=== PATIENT | female | born 1985 | race Caucasian/White ===

== ENCOUNTER 2016-06-29 01:13 | Inpatient (IN) ==
[2016-06-29] MEDS ORDERED: Ondansetron 4 MG/2 ML VIAL IVP PRN (02:38)
[2016-06-29] MEDS ORDERED: Famotidine 20 MG/2 ML VIAL IVP PRN (02:38)
[2016-06-29] MEDS ORDERED: Naloxone 0.4 MG/ML INJ IVP PRN (02:38)
[2016-06-29] MEDS ORDERED: Ringers Solution, Lactated 1,000 ML ONE (02:41)
[2016-06-29 02:42] LABS: Basophils # 0.1 K/mcL (0.0-0.2); Basophils % 0.6 %; Eosinophils % 0.2 %; Hematocrit 28.3 % (35.3-44.9); Hemoglobin 8.4 g/dL (11.5-15.4); Immature Granulocytes % 1.3 % (0-4); Lymphocytes # 1.4 K/mcL (0.6-4.6); Lymphocytes % 16.1 %; Mean Corpuscular HGB Conc 29.7 g/dL (31.6-35.5); Mean Corpuscular Hemoglobin 20.7 pg (28.0-33.3); Mean Corpuscular Volume 69.7 fL (83.0-100.0); Mean Platelet Volume 11.1 fL (9.4-12.4); Monocytes # 0.5 K/mcL (0.0-1.3); Monocytes % 6.2 %; Neutrophils # 6.4 K/mcL (1.6-8.9); Nucleated Red Blood Cells 0.2 /100 WBC (0); Platelet Count 228 K/mcL (140-400); Red Blood Count 4.06 M/mcL (3.82-4.97); Red Cell Distribution Width 17.2 % (11.5-14.5); Segmented Neutrophils % 75.6 %
[2016-06-29] MEDS ORDERED: Ringers Solution, Lactated 1,000 ML IVC SCH (02:45)
[2016-06-29 03:00] LABS: Hypochromasia Present (Not Present); Platelet Estimate Normal (Normal); Polychromasia 1+ (Not Present)
--- NOTE | 2016-06-29 06:40 | OB/GYN History & Physical ---
Date of Encounter: 06/29/16 Time of Encounter: 06:30 Assessment and Plan (1) 38 weeks gestation of Current visit: Yes Status: Acute (2) Spontaneous rupture of membranes Current visit: Yes Status: Acute (3) Meconium in amniotic fluid affecting management of mother in third trimester Current visit: Yes Status: Acute Qualifiers: Fetus number: single or unspecified fetus Qualified Code(s): O36.8930 - Maternal care for other specified problems, third trimester, not applicable or unspecified (4) Active labor at term Current visit: Yes Status: Acute The patient does not continue to make cervical change on her own we will augment with Pitocin (5) Factor 5 Leiden mutation, heterozygous Current visit: Yes Status: Acute (6) and not yet delivered in third trimester Current visit: No Status: Acute History of Present Illness HPI: Ms. Ansari is a 30 year old female 5 para 1122 at 38-3/7 weeks who presented to labor and delivery with complaint of leaking of fluid at 1600 yesterday. Patient states she is started having leaking when her daughter got off the bus around 1600. She states it was just a small gush states continued to have dampness throughout the evening. Started having contractions and back pain and pressure came to labor and delivery where she states she had another large gush. Nitrazine was positive and she was having irregular contractions. The patient has a history of factor V Leiden is on heparin 5000 units twice a day. Patient's GBS status was negative Past Med Surg Social Fam HX - Past Medical History Medical history: asthma, other (Factor 5 Leiden) Psychiatric history: no psych history - Past Surgical History Surgical History: no surgical history - Social History Smoking Status: Never smoker Smokeless Tobacco Status: No Alcohol use: none Drug use: none Occupational status: employed Current living situation: Home - Independent Activity Level: Independent ambulation Recent Out of Country Travel Within the Last 8 Weeks: No Exposure or Possible Exposure to Illness During Travel: No - Family History Father Adopted: No Family Member Ethnicity: Non- Living Status: Still Living Hx Family Cardiac Disorders: No Hx Family Respiratory Disorders: No Hx Family Cancer: Yes Hx Family GI Disorders: No Hx Family Endocrine Disorder: No Hx Family Neuromuscular Disorders: No Hx Family Neurologic Disorders: No Hx Family HEENT Disorders: No Hx Family Autoimmune Disorders: No - Additional Family History Additional family history: Family history noncontributory at this time Obstetrical History - Pregnancies : 5 Para: 2 Term: 1 : 1 Ab's: 2 Livin Medications and Allergies Ondansetron ODT [Zofran ODT] 1 tab PO Q6H 05/04/16 [History] Bax105/FA/Omega3/Dha/Fish Oil [ Gummies] 1 tab PO DAILY 05/04/16 [ History] Ferrous Sulfate 1 tab PO DAILY 06/11/16 [History] Ppj365/FA/Omega3/Dha/Fish Oil [ Gummies] 1 each PO DAILY #30 tab.chew [Rx] Allergies naproxen [From Naprosyn] Allergy (Verified 06/11/16 14:23) Numbness Penicillins Allergy (Verified 06/11/16 14:23) Hives Review of System OB All systems PM: reviewed and no additional remarkable complaints except as stated Exam - Constitutional Constitutional: well developed, well nourished, average body habitus, mild distress - HEENT HEENT: PERRL - Neck Neck exam: full ROM - Lungs Respiratory exam: CTAB - Cardiovascular Cardiovascular exam: RRR - Abdomen Abdomen: Present: gravid - Cervix Dilation: 6 Effacement: 80 Station: -3 (forbag was noted this was then artificially ruptured with large amounts of meconium-stained fluid encountered.) - Comments Comments: heart tones 130s reactive scalp monitor placed contractions irregular every 2-4 minutes. Results Result Diagrams: 06/29/16 02:30 Abnormal lab results Hgb 8.4 g/dL (11.5-15.4) L 06/29/16 02:30 Hct 28.3 % (35.3-44.9) L 06/29/16 02:30 MCV 69.7 fL (83.0-100.0) L 06/29/16 02:30 MCH 20.7 pg (28.0-33.3) L 06/29/16 02:30 MCHC 29.7 g/dL (31.6-35.5) L 06/29/16 02:30 RDW 17.2 % (11.5-14.5) H 06/29/16 02:30 Nucleated RBCs/100 WBC 0.2 /100 WBC (0) H 06/29/16 02:30 Polychromasia 1+ (Not Present) A 06/29/16 02:30 Hypochromasia Present (Not Present) A 06/29/16 02:30 All other labs normal. - VTE Reasons for not Prescribing Prophylaxis: Treatment not Indicated - Low risk for VTE
[2016-06-29] MEDS ORDERED: Oxytocin 20 units/ LR 1000 mL 20 UNIT/1,000 ML BAG IVC ONE ×3 (07:49→11:36)
--- NOTE | 2016-06-29 09:07 | OB/GYN Procedure Note ---
Delivery - Delivery Date: 06/29/16 Provider: Timoteo Frank Intrapartum events: none Delivery induction: none Delivery monitor: external uterine, internal FHT Anesthesia: epidural Estimated Blood Loss: 300 - Infant (s) Infant A Delivery Date: 06/29/16 Infant Delivery Time: 08:49 Presentation: vertex Position: ELIAN Route of delivery: Gender: Male Viability: Viable Pounds: 7 Ounces: 14 at 1 minute: 9 at 5 mins: 9 Shoulder Dystocia: not encountered Specimens collected: cord blood Placenta: spontaneous Cord: 3 umbilical vessels, delivered through nuchal - Repair Episiotomy: none Laceration Description: None - Complications Delivery complications: none - Disposition Mom disposition: stable in LDR disposition: stable in LDR - Comments Comments: Pt s/p of liveborn male without complications. Spontaneous delivery of normal placenta. Mother and recovered in LDR.
[2016-06-29] MEDS ORDERED: Rho Immune Globulin 1,500 UNIT SYRINGE IM PRN (11:36)
[2016-06-29] MEDS ORDERED: Ibuprofen 600 MG TABLET PO PRN (11:36)
[2016-06-29] MEDS ORDERED: Acetaminophen 325 MG TABLET PO PRN (11:36)
[2016-06-29] MEDS ORDERED: Measles/Mumps/Rubella Vacc 0.5 ML VIAL SQ PRN (11:36)
[2016-06-29] MEDS ORDERED: Oxytocin 20 units/ LR 1000 mL 20 UNIT/1,000 ML BAG IV SCH (11:36)
[2016-06-30 03:48] VITALS: BP 115/69
[2016-06-30 04:03] LABS: Basophils % 0.2 %; Eosinophils # 0.1 K/mcL (0.0-0.6); Eosinophils % 0.4 %; Hematocrit 25.5 % (35.3-44.9); Hemoglobin 7.6 g/dL (11.5-15.4); Immature Platelets 8.2 % (1.1-6.1); Lymphocytes # 1.8 K/mcL (0.6-4.6); Lymphocytes % 13.1 %; Mean Corpuscular HGB Conc 29.8 g/dL (31.6-35.5); Mean Corpuscular Hemoglobin 21.2 pg (28.0-33.3); Mean Corpuscular Volume 71.2 fL (83.0-100.0); Mean Platelet Volume 11.3 fL (9.4-12.4); Neutrophils # 10.8 K/mcL (1.6-8.9); Platelet Count 182 K/mcL (140-400); Red Blood Count 3.58 M/mcL (3.82-4.97); Red Cell Distribution Width 17.3 % (11.5-14.5); Segmented Neutrophils % 78.3 %
[2016-06-30] MEDS: Prenatal Vit/FA 1 EACH TABLET PO SCH ×2 (07:49→12:43)
--- NOTE | 2016-06-30 09:07 | Discharge Summary ---
Date of Encounter: 06/30/16 Time of Encounter: 09:05 - Discharge Diagnosis (1) (normal spontaneous vaginal delivery) Priority: Primary Status: Acute Comments: Pt meeting milestones. (2) anemia Priority: Secondary Status: Acute Comments: Pt reports she was unable to tolerate taking the iron pills during her due to gagging and vomiting when trying to swallow pills. She was taking gummy multivitamins. We discussed that gummy vitamins usually have no iron and that she needs to take a multivitamin with iron as well as an iron supplement to build her hgb back up. She desires tubal ligation and we discussed that she will need to have a much improved hgb in order to have elective surgery. She is agreeable to get flinstone vitamins and will take liquid iron. (3) Factor 5 Leiden mutation, heterozygous Priority: Secondary Status: Acute - Discharge Medications Prescriptions: Ibuprofen Susp [Motrin Susp] 600 mg PO Q6HR PRN #300 mls PRN Reason: Pain Docusate [Colace] 100 mg PO BID #600 mls Ferrous Sulfate Oral Soln 220 mg PO BID #300 mls Home Medications: Ondansetron ODT [Zofran ODT] 1 tab PO Q6H 05/04/16 [History] Docusate [Colace] 100 mg PO BID #600 mls 06/30/16 [Rx] Ferrous Sulfate Oral Soln 220 mg PO BID #300 mls 06/30/16 [Rx] Ibuprofen Susp [Motrin Susp] 600 mg PO Q6HR PRN #300 mls 06/30/16 [Rx] Allergies/Adverse Reactions: Allergies naproxen [From Naprosyn] Allergy (Verified 06/11/16 14:23) Numbness Penicillins Allergy (Verified 06/11/16 14:23) Hives Data Procedures and tests throughout hospitalization: Laboratory Tests 06/29/16 06/30/16 02:30 03:46 WBC 8.4 13.8 H D RBC 4.06 3.58 L Hgb 8.4 L 7.6 L Hct 28.3 L 25.5 L MCV 69.7 L 71.2 L MCH 20.7 L 21.2 L MCHC 29.7 L 29.8 L RDW 17.2 H 17.3 H Plt Count 228 182 MPV 11.1 11.3 Immature Gran % 1.3 1.0 Seg Neutrophils % 75.6 78.3 Lymphocytes % 16.1 13.1 Monocytes % 6.2 7.0 Eosinophils % 0.2 0.4 Basophils % 0.6 0.2 Neutrophils # 6.4 10.8 H Lymphocytes # 1.4 1.8 Monocytes # 0.5 1.0 Eosinophils # 0.0 0.1 Basophils # 0.1 0.0 Nucleated RBCs/100 WBC 0.2 H Platelet Estimate Normal Immature Plt Fraction 8.2 H Polychromasia 1+ A Hypochromasia Present A Labs on day of discharge: Labs from last 24 hours 06/30/16 03:46 WBC 13.8 H D RBC 3.58 L Hgb 7.6 L Hct 25.5 L MCV 71.2 L MCH 21.2 L MCHC 29.8 L RDW 17.3 H Plt Count 182 MPV 11.3 Immature Gran % 1.0 Seg Neutrophils % 78.3 Lymphocytes % 13.1 Monocytes % 7.0 Eosinophils % 0.4 Basophils % 0.2 Neutrophils # 10.8 H Lymphocytes # 1.8 Monocytes # 1.0 Eosinophils # 0.1 Basophils # 0.0 Immature Plt Fraction 8.2 H Date of admission: 06/29/16 01:13 Primary care physician: Simeon Felton MD Consults: 06/29/16 11:36 Consult to Production Analyst [CONS] Routine Comment: Vaginal delivery, consult needed Discharging clinician: Floridalma Calderon Anticipated date of discharge: 06/30/16 - Patient Status Disposition: Home, Self-Care Condition: Good Functional capacity at discharge: independent ambulation Overall status at discharge: patient is progressing back to baseline - Discharge Instructions Follow Up With: Simeon Felton MD [Primary Care Provider] - Timoteo Frank MD [Partnered Physician] - - Diet and Activity Activity: increase activity as tolerated Diet: advance to your usual diet Hospital Course Reason for admission: active labor Delivery: Episiotomy: none Laceration: none complications: none Discharge diagnosis: IUP at term delivered [place] baby: male Hospital course: - Delivery Date: 06/29/16 Provider: Timoteo Frank Intrapartum events: none Delivery induction: none Delivery monitor: external uterine, internal FHT Anesthesia: epidural Estimated Blood Loss: 300 - Infant (s) Infant A Infant Delivery Date: 06/29/16 Delivery Time: 08:49 Presentation: vertex Position: ELIAN Route of delivery: Gender: Male Viability: Viable Pounds: 7 Ounces: 14 at 1 minute: 9 at 5 mins: 9 Shoulder Dystocia: not encountered Specimens collected: cord blood Placenta: spontaneous Cord: 3 umbilical vessels, delivered through nuchal - Repair Episiotomy: none Laceration Description: None - Complications Delivery complications: none - Disposition Mom disposition: home PPD#1 [place] disposition: home with mother bottle feeding. Time Attestation: Total time spent providing and/or coordinating discharge services: Time Spent: Less than 30 minutes Exam - Constitutional Vitals: Temp Pulse Resp BP Pulse Ox 98.1 F 64 16 115/69 99 06/30/16 03:30 06/30/16 03:30 06/30/16 03:30 06/30/16 03:30 06/30/16 03:30 General appearance IM: A&O X 3, pleasant, no acute distress - Respiratory Respiratory exam: Present: CTAB - Cardiovascular Cardiovascular exam IM: Present: RRR, +S1, +S2 - GI/Abdominal GI/Abdominal exam IM: soft - Rectal Rectal exam: deferred - Uterine Tone: Firm Uterus Position: At Umbilicus - Extremities Exam Extremities exam IM: Present: normal inspection - Neurological Exam Neurological exam: normal gait, oriented X3 - Psychiatric Additional comments: reports good mood
== END 2016-06-30 15:12 | disposition home or self-care (01) | DRG 775 ==
LOC: 1NENULAB → 1NENUOBS 11:33
PROVIDERS: ADMIT Obstetrics & Gynecology; ATTEND Obstetrics & Gynecology